=== PATIENT | female | born 1965 | race Caucasian/White ===

== ENCOUNTER → 2024-04-02 11:27 | Outpatient (BNVA) | payer MEDICAID, SELFPAY | DX: J44.9 Chronic obstructive pulmonary disease, unspecified; E03.9 Hypothyroidism, unspecified; J98.4 Other disorders of lung | CPT/HCPCS: 71046; 80053; 80061; 84439; 84443; 85025 ==

== ENCOUNTER → 2024-06-11 14:32 | Outpatient (BNVA) | payer OTHER, SELFPAY | DX: E03.9 Hypothyroidism, unspecified (principal) | CPT/HCPCS: 84443 ==

== ENCOUNTER → 2024-08-31 10:21 | Outpatient (BNVA) | payer OTHER, SELFPAY | PROVIDERS: Visit Provider Nurse Practitioner | DX: F41.9 Anxiety disorder, unspecified (principal); F32.9 Major depressive disorder, single episode, unspecified; F43.12 Post-traumatic stress disorder, chronic | CPT/HCPCS: 80061; 83036 ==

== ENCOUNTER → 2024-11-27 14:16 | Outpatient (BNVA) | payer MEDICAID, SELFPAY ==
[2024-09-04 14:38] VITALS: BP 127/75; BMI 26.0
== END ==
DX: E03.9 Hypothyroidism, unspecified (principal); I10 Essential (primary) hypertension
CPT/HCPCS: 80053; 80061; 84439; 84443; 84481